=== PATIENT | male | born 1990 | race Caucasian/White ===

== ENCOUNTER 2018-04-12 08:17 | Emergency (ER) | payer OTHER ==
--- NOTE | 2018-04-12 09:28 | XRAY Report ---
Reason: Trauma Procedure Date: 04/12/2018 Accession Number: [id number] / [id number] Procedure: XR - Knee 4 View RT CPT Code: FULL RESULT: EXAM: RIGHT KNEE RADIOGRAPHY 4 VIEWS EXAM DATE: 04/12/2018. CLINICAL HISTORY: Trauma. Hyperextension injury. COMPARISON: None. TECHNIQUE: AP, both oblique and lateral views. FINDINGS: Bones: Normal. No fractures or bone lesions. Joints: No subluxation. Mild distention of the suprapatellar bursa. Soft Tissues: Normal. No soft tissue swelling. IMPRESSION: Small joint effusion. Otherwise normal examination. [facility]
--- NOTE | 2018-04-12 09:47 | ED Physician Documentation ---
PD HPI LOWER EXT INJURY - Stated complaint Stated Complaint: KNEE PX - Chief complaint Chief Complaint: Ext Problem - History obtained from History obtained from: Patient - History of Present Illness PD HPI LOW EXT INJURY LOCATION: Right, Knee (He has a history of ACL strain with football injury. He was playing football today and went up to catch and throw planted the right leg and twisted and felt a pop. Cannot walk or bear weight due to anterior knee pain. No other injuries.) Review of Systems Constitutional: denies: Fever, Chills Respiratory: reports: Reviewed and negative : reports: Reviewed and negative PD PAST MEDICAL HISTORY - Present Medications Home Medications: Ambulatory Orders Medication Instructions Recorded Confirmed Hydrocodone/Acetaminophen 1 - 2 each PO Q6H PRN #14 tablet 04/12/18 [Hydrocodon-Acetaminophen 5-325] Ibuprofen [Motrin] 800 mg PO Q8H PRN #30 tablet 04/12/18 - Allergies Allergies/Adverse Reactions: Allergies Allergy/AdvReac Type Severity Reaction Status Date / Time Penicillins Allergy Unknown Verified 04/12/18 08:48 PD ED PE NORMAL - Vitals Vital signs reviewed: Yes - General General: Alert and oriented X 3, No acute distress - Extremities Extremities: Other (There is a moderate effusion of the right knee and he has tenderness especially anteriorly. No lateral tenderness. The ACL does seem loose and he has pain with grind testing and medial meniscus testing.) - Neuro Neuro: Alert and oriented X 3, Normal speech Results - Vitals Vitals: Vital Signs - 24 hr 04/12/18 08:45 Temperature 36.3 C L Heart Rate 78 Respiratory 16 Rate Blood Pressure 129/80 O2 Saturation 100 - Rads (name of study) 4 views of the right knee Radiology: EMP read contemporaneously (Small effusion, no bony injury) PD MEDICAL DECISION MAKING - Sepsis Event Vital Signs: Vital Signs - 24 hr 04/12/18 08:45 Temperature 36.3 C L Heart Rate 78 Respiratory 16 Rate Blood Pressure 129/80 O2 Saturation 100 Departure - Departure Disposition: 01 Home, Self Care Clinical Impression: Internal derangement of right knee Condition: Good Record reviewed to determine appropriate education?: Yes Instructions: ED Knee Injury Cruciate Ligament Prescriptions: Hydrocodone/Acetaminophen [Hydrocodon-Acetaminophen 5-325] 1 - 2 each PO Q6H PRN #14 tablet PRN Reason: pain Ibuprofen [Motrin] 800 mg PO Q8H PRN #30 tablet PRN Reason: PAIN &/OR FEVER Comments[place]rays [place]. Return if worse or if new symptoms develop. Wear the splint when up and around, you do not need to wear it while bathing or in bed Forms: Activity restrictions
[2018-04-12 10:23] VITALS: BP 118/75
== END 2018-04-12 10:22 | disposition home or self-care (01) ==
LOC: ED 08:17
DX: M23.91 Unspecified internal derangement of right knee (principal)
CPT/HCPCS: 99283

== ENCOUNTER 2018-05-23 12:02 | Outpatient (CLI) | payer OTHER ==
--- NOTE | 2018-05-23 18:00 | MRI Report ---
Reason: PAIN IN UNSPECIFIED KNEE Procedure Date: 05/23/2018 Accession Number: [id number] / [id number] Procedure: MRI - Knee RT W/O CPT Code: FULL RESULT: EXAM: RIGHT KNEE MRI WITHOUT CONTRAST EXAM DATE: 05/23/2018 12:45 PM. CLINICAL HISTORY: Pain in unspecified knee. COMPARISON: KNEE 4 VIEW RT 04/12/2018 8:54 AM. TECHNIQUE: Multiplanar, multisequence T1-weighted and fluid-sensitive sequences of the knee without contrast. Other: None. FINDINGS: Bones: Osteochondral impaction lateral femoral condyle 2 mm depth. Articular Cartilage: Unremarkable. Medial Meniscus: The medial meniscus is intact. Lateral Meniscus: Complex tear posterior horn lateral meniscus. Small free edge tear junction of body and posterior horn lateral meniscus. Cruciate Ligaments: Complete tear anterior cruciate ligament. Intact low signal posterior cruciate ligament. Collateral Ligaments: The medial collateral and lateral collateral ligamentous structures are intact. Tendons: The quadriceps, patellar, semimembranosus, and popliteus tendons are unremarkable. Musculature: No edema or fatty atrophy. Other: Moderate quantity of fluid medial and lateral patellar recesses. No popliteal cyst. No loose bodies. The medial and lateral retinacula are intact. The subcutaneous tissues and fat pads are unremarkable. IMPRESSION: 1. Complete tear anterior cruciate ligament. 2. Complex tear posterior horn lateral meniscus. 3. Osteochondral impaction 2 mm depth lateral femoral condyle. [facility] MUSCULOSKELETAL RADIOLOGY SECTION
== END 2018-05-23 12:03 | disposition home or self-care (01) ==
LOC: DI 12:02
PROVIDERS: ATTEND Radiology Diagnostic Radiology
DX: S83.511A Sprain of anterior cruciate ligament of right knee, initial encounter (principal); S83.281A Other tear of lateral meniscus, current injury, right knee, initial encounter; M89.8X6 Other specified disorders of bone, lower leg

== ENCOUNTER 2018-08-04 05:41 | Day surgery (SDC) | payer OTHER ==
[2018-08-04] MEDS ORDERED: ceFAZolin 2 GM/50 ML 2 GM/50 ML BAG IV ONE (06:25)
[2018-08-04] MEDS ORDERED: LACTATED RINGERS 1,000 ML IV ONE ×2 (06:28→09:55)
--- NOTE | 2018-08-04 07:07 | ANESTHESIA ---
Pre-Anesthesia VS, & Labs - Diagnosis R ACL/Meniscus tears - Procedure R AACL Repair, meniscus debridement Vital Signs: Temp Pulse Resp BP Pulse Ox 36.5 C 80 18 128/84 H 100 08/04/18 06:28 08/04/18 06:28 08/04/18 06:28 08/04/18 06:28 08/04/18 06:28 Height 5 ft 11 in Weight (kg) 106.59 kg Body Mass Index 31.1 - NPO >8 hours Home Medications and Allergies Allergies/Adverse Reactions: Allergies Allergy/AdvReac Type Severity Reaction Status Date / Time Penicillins Allergy Unknown Verified 04/12/18 08:48 Anes History & Medical History - Anesthetic History Anesthesia Complications: reports: No previous complications Family history of Anesthesia Complications: Denies Family history of Malignant Hyperthermia: Denies - Medical History Cardiovascular: reports: None Pulmonary: reports: None Gastrointestinal: reports: None Urinary: reports: None Musculoskeletal: reports: Other Endocrine/Autoimmune: reports: None Skin: reports: None Smoking Status: Never smoker Exam General: Alert, Oriented x3, Cooperative Dental: WNL Mouth Openin Fingerbreadth Neck Mobility: Normal Mallampati classification: II Thyromental Distance: 4-6 cm Respiratory: Lungs clear, Normal breath sounds, No respiratory distress Cardiovascular: Regular rate Neurological: Normal speech Mental/Cognitive Status: Alert/Oriented X3 Cognitive Status: Within normal limits Plan Anesthesia Type: General, Femoral Block Regional Block: Per Surgeon's request for Post Op pain control Consent for Procedure(s) Verified and Reviewed: Yes Code Status: Attempt Resuscitation ASA classification: 1-Healthy patient Is this case an emergency?: No
[2018-08-04] MEDS ORDERED: BUPIVACAINE 0.25% PF 30 ML VIAL ONE (07:24)
[2018-08-04] MEDS ORDERED: BUPIVACAINE 0.25% PF 30 ML VIAL SUBQ ONE ×2 (09:32→11:23)
[2018-08-04] MEDS ORDERED: ROPIVACAINE 0.5% PF 20 ML AMPULE ONE (09:38)
[2018-08-04] MEDS ORDERED: HYDROmorphone 1 MG/ML CARPUJECT IVP ONE (10:00)
[2018-08-04] MEDS ORDERED: PROPOFOL 200 MG/20 ML VIAL IVP ONE (10:00)
[2018-08-04] MEDS ORDERED: ROPIVACAINE 0.5% PF 20 ML VIAL EPI ONE (10:00)
[2018-08-04] MEDS ORDERED: fentaNYL 100 MCG/2 ML VIAL IVP ONE (10:00)
[2018-08-04] MEDS ORDERED: METOCLOPRAMIDE 10 MG/2 ML VIAL IVP ONE (10:00)
[2018-08-04] MEDS ORDERED: DEXAMETHASONE 4 MG/ML VIAL IVP ONE (10:00)
[2018-08-04] MEDS ORDERED: fentaNYL 250 MCG/5 ML VIAL IVP ONE (10:00)
[2018-08-04] MEDS ORDERED: MAGNESIUM SULFATE 1 GM/2 ML VIAL IV ONE (10:00)
[2018-08-04] MEDS ORDERED: ONDANSETRON 4 MG/2 ML VIAL IVP ONE (10:00)
[2018-08-04] MEDS ORDERED: KETAMINE 500 MG/10 ML VIAL IVP ONE (10:00)
[2018-08-04] MEDS ORDERED: KETOROLAC 30 MG/ML VIAL IVP ONE (10:00)
[2018-08-04] MEDS ORDERED: MIDAZOLAM 2 MG/2 ML VIAL IVP ONE (10:00)
[2018-08-04] MEDS ORDERED: oxyCODONE 5 MG TABLET PO PRN (13:03)
[2018-08-04] MEDS ORDERED: ONDANSETRON 4 MG/2 ML VIAL IVP PRN (13:03)
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
[2018-08-04 14:13] VITALS: BP 119/71
--- NOTE | 2018-08-04 21:57 | XRAY Report ---
Reason: S/P ACL REPAIR Procedure Date: 08/04/2018 Accession Number: [id number] / [id number] Procedure: XR - Knee 2 View RT CPT Code: FULL RESULT: EXAM: RIGHT KNEE RADIOGRAPHY EXAM DATE: 08/04/2018 12:52 PM. CLINICAL HISTORY: Status post ACL reconstruction. COMPARISON: KNEE 4 VIEW RT 04/12/2018 8:54 AM. TECHNIQUE: 2 views. FINDINGS: Bones: Normal bone mineralization. No fracture. Postsurgical changes in the distal right femur and proximal right tibia, compatible with ACL reconstruction. No other focal bone lesion. Joints: There is fluid and air in the right knee joint. No dislocation or subluxation. Soft Tissues: Postsurgical changes in the anterior and lateral right knee soft tissues. No inappropriate radiopaque foreign object. IMPRESSION: 1. Postsurgical changes of right ACL reconstruction. 2. No inappropriate radiopaque foreign object. [facility]
== END 2018-08-04 05:42 | disposition home or self-care (01) ==
LOC: SDS 05:41
PROVIDERS: ATTEND Orthopaedic Surgery
PROC: 0MRN47Z Replacement of Right Knee Bursa and Ligament with Autologous Tissue Substitute, Percutaneous Endoscopic Approach (ICD-10-PCS; 2018-08-04)
PROC: 0LBQ0ZZ Excision of Right Knee Tendon, Open Approach (ICD-10-PCS; 2018-08-04)
PROC: 0SBC4ZZ Excision of Right Knee Joint, Percutaneous Endoscopic Approach (ICD-10-PCS; principal; 2018-08-04 07:30)
DX: S83.511D Sprain of anterior cruciate ligament of right knee, subsequent encounter (principal); M23.251 Derangement of posterior horn of lateral meniscus due to old tear or injury, right knee; X50.1XXD Overexertion from prolonged static or awkward postures, subsequent encounter; Z79.891 Long term (current) use of opiate analgesic; Z79.82 Long term (current) use of aspirin; Z79.1 Long term (current) use of non-steroidal anti-inflammatories (NSAID)
CPT/HCPCS: 29881; 29888; 73560; C1713; J0690; J1170; J2765; J2795; J3010; J7120

== ENCOUNTER 2021-01-27 12:40 | Outpatient (CLI) | payer OTHER | END 2021-01-27 23:59 | disposition home or self-care (01) | LOC: COV 12:40 | PROVIDERS: ATTEND Otolaryngology | DX: Z01.812 Encounter for preprocedural laboratory examination (principal); Z20.822 Contact with and (suspected) exposure to COVID-19 ==

== ENCOUNTER 2021-09-26 09:58 | Emergency (ER) | payer OTHER ==
--- NOTE | 2021-09-26 10:04 | ED Physician Documentation ---
History of Present Illness - Stated complaint Stated Complaint: LT LEG LUMP - History obtained from History obtained from: Patient - Additonal information Additional information: He has what he thinks is an inflamed cyst in the left groin. Been there for a few months but now inflamed for the last few days. No fevers or drainage. Review of Systems Constitutional: denies: Fever, Chills Eyes: reports: Reviewed and negative Ears: reports: Reviewed and negative Respiratory: reports: Reviewed and negative PD PAST MEDICAL HISTORY - Past Medical History Cardiovascular: None Respiratory: None Endocrine/Autoimmune: None GI: None : None HEENT: None Psych: None Musculoskeletal: Other Derm: None - Present Medications Home Medications: Ambulatory Orders Medication Instructions Recorded Confirmed No Known Home Medications 09/26/21 09/26/21 - Allergies Allergies/Adverse Reactions: Allergies Allergy/AdvReac Type Severity Reaction Status Date / Time Penicillins Allergy Unknown Verified 04/12/18 08:48 - Social History Does the pt smoke?: No Smoking Status: Never smoker - Immunizations Immunizations are current?: Yes PD ED PE NORMAL - Vitals Vital signs reviewed: Yes - General General: Alert and oriented X 3, No acute distress - Derm Derm: Other (small pointed sebaceous cyst L groin w minimal cellulitis.) - Psych Psych: Normal mood, Normal affect Results - Vitals Vitals: Vital Signs - 24 hr 09/26/21 10:06 Temperature 36.8 C Heart Rate 100 Respiratory 19 Rate Blood Pressure 136/78 H O2 Saturation 98 Oxygen O2 Source Room air Procedures - Abscess I&D (location) L groin Preparation: Lidocaine 1%, With epi Incision: Incised with scalpel, Purulent drainage, Loculations broken Other: Pt tolerated well, Dressing applied, Other Departure - Departure Disposition: 01 Home, Self Care Clinical Impression: Sebaceous cyst Condition: Good Record reviewed to determine appropriate education?: Yes Instructions: ED Cyst Sebaceous Infec IandD
[2021-09-26 10:11] VITALS: BP 136/78
== END 2021-09-26 10:35 | disposition home or self-care (01) ==
LOC: ED 09:58
DX: B43.2 Subcutaneous pheomycotic abscess and cyst (principal)
CPT/HCPCS: 10060